=== PATIENT | male | born 1960 | race Caucasian/White ===

== ENCOUNTER → 2017-10-17 | Outpatient (CLI) | payer BC ==
--- NOTE | 2017-10-17 15:57 | Diagnostic Imaging Report ---
INDICATION: Fall with injury. Pain and bruising to the right hand and wrist. COMPARISON: None. FINDINGS: Three views of the right hand show no fractures, dislocations, or other acute bony abnormalities identified. Joint spaces are well maintained throughout. The soft tissues appear unremarkable. No radiopaque foreign bodies are identified. IMPRESSION: No acute fractures or dislocations of the right hand. Dictated by: Dictated on workstation # [id number]
--- NOTE | 2017-10-17 16:47 | Diagnostic Imaging Report ---
INDICATION: Tripped and fell approximately 12 days ago with pain and bruising of the right hand and wrist. FINDINGS: Three views of the right wrist are compared to images of the right hand. The exam demonstrates no fracture or dislocation. There is a tiny osteophyte off of the radius on the lateral view. An old healed fracture of the fifth metacarpal is present. IMPRESSION: There are no acute findings. Dictated by: Dictated on workstation # [id number]
== END ==
LOC: RAD 13:54
PROVIDERS: ATTEND Family Medicine
DX: S60.211A Contusion of right wrist, initial encounter (principal); W01.0XXA Fall on same level from slipping, tripping and stumbling without subsequent striking against object, initial encounter
CPT/HCPCS: 73110; 73130

== ENCOUNTER → 2018-08-01 | Outpatient (CLI) | payer BC ==
[~2018-08-01] MED LIST: GADOBUTROL 10 MMOL/10 ML (GADAVIST) VIAL IV ONE
--- NOTE | 2018-08-01 11:02 | Diagnostic Imaging Report ---
PROCEDURE: MR imaging of the brain with and without contrast. TECHNIQUE: Multiplanar, multisequence MR imaging of the brain was performed with and without contrast. INDICATION: Memory loss. COMPARISON: None. FINDINGS: Mild generalized cerebral and cerebellar parenchymal volume loss. No abnormal intracranial signal or enhancement. No restricted water diffusion or hemosiderin deposition. Normal morphology including the major midline structures, sella, posterior fossa and cerebellar pontine angle. The orbits are unremarkable on this nondedicated exam. No extra-axial fluid collections or hydrocephalus. Normal intracranial flow voids. The paranasal sinuses and mastoids are clear. Normal bone marrow signal. IMPRESSION: Age-appropriate MRI of the brain. No acute intracranial MRI findings. Dictated by: Dictated on workstation # [id number]
== END ==
LOC: RAD 09:25
PROVIDERS: ATTEND Family Medicine
DX: Z13.88 Encounter for screening for disorder due to exposure to contaminants (principal); H93.13 Tinnitus, bilateral; R47.89 Other speech disturbances; R41.3 Other amnesia
CPT/HCPCS: 36415; 70553; 83655